=== PATIENT | female | born 1945 | race Caucasian/White ===

== ENCOUNTER 2016-10-07 18:01 | Emergency (ER) | payer MEDICARE, OTHER ==
[~2016-10-07] VITALS: Ht 157.5 cm; Wt 65.5 kg
[2016-10-07 19:04] LABS: BASOPHILS % (AUTO) 0 % (0-2); EOSINOPHILS # (AUTO) 0.1 10^3uL; EOSINOPHILS % (AUTO) 1 % (0-4); LYMPHOCYTES # (AUTO) 1.7 X10^3; MEAN CORPUSCULAR VOLUME 90 FL (80-100); MEAN PLATELET VOLUME 11.9 FL (6.0-9.5); MONOCYTES # (AUTO) 1.1 X10^3; MONOCYTES % (AUTO) 11 % (3-11); NEUTROPHILS # (AUTO) 7.3 X10^3; NEUTROPHILS % (AUTO) 71 % (51-67); PLATELET COUNT 136 10^3uL (150-450); WHITE BLOOD COUNT 10.24 10^3uL (4.0-11.0)
[2016-10-07 19:06] LABS: BILIRUBIN,URINE Negative (Negative); CLARITY,URINE Clear; COLOR,URINE Yellow; GLUCOSE, URINE (UA) Negative (Negative); LEUKOCYTE ESTERASE ,URINE 1+ (Negative); UROBILINOGEN,URINE 0.2 mg/dL (0.2-1.0)
[2016-10-07 19:14] LABS: MEAN CORPUSCULAR HEMOGLOBIN 32.1 PG (26.0-34.0); MEAN CORPUSCULAR HGB CONC 35.6 g/dL (31.0-37.0)
[2016-10-07 19:16] LABS: URINE CENTRIFUGED VOLUME 12 mL
[2016-10-07 19:18] LABS: ALBUMIN 4.7 g/dL (3.4-5.0); ALKALINE PHOSPHATASE 112 U/L (38-126); ANION GAP 16.1 MEQ/L (3-15); BUN/CREATININE RATIO 18 (10-20); CALCULATED IONIZED CALCIUM 3.9 mg/dL (3.8-4.6); CREATINE KINASE 58 U/L (30-135); TOTAL PROTEIN 7.7 g/dL (6.4-8.5)
[2016-10-07] MEDS ORDERED: LORazepam 2 MG/ML (ATIVAN) 1 ML VIAL IV ONE (20:20)
[2016-10-07] MEDS ORDERED: ED- SULFAMETHOXAZOLE/TRIMETHOPRIM 800-160 MG (SEPTRA DS) 6 TABLETS/BTL PO ONE (20:20)
[2016-10-07 20:45] VITALS: BP 179/105
== END 2016-10-07 20:46 | disposition home or self-care (01) ==
LOC: ED 18:05
DX: I10 Essential (primary) hypertension (principal); N39.0 Urinary tract infection, site not specified; F43.9 Reaction to severe stress, unspecified
CPT/HCPCS: 36415; 71010; 80053; 81003; 81015; 82550; 82553; 83605; 83880; 84443; 84484; 85025; 85379; 85610; 86140; 87088; 93005; 96361; 96374; 99284; A9270; J2060; J7030; 93010

== ENCOUNTER → 2016-10-10 | Outpatient (CLI) | payer MEDICARE, OTHER ==
[2016-10-10 14:50] LABS: BASOPHILS % (AUTO) 0 % (0-2); EOSINOPHILS # (AUTO) 0.1 10^3uL; EOSINOPHILS % (AUTO) 1 % (0-4); LYMPHOCYTES # (AUTO) 1.4 X10^3; MEAN CORPUSCULAR HGB CONC 35.3 g/dL (31.0-37.0); MEAN CORPUSCULAR VOLUME 89 FL (80-100); MEAN PLATELET VOLUME 12.4 FL (6.0-9.5); MONOCYTES # (AUTO) 0.9 X10^3; MONOCYTES % (AUTO) 9 % (3-11); NEUTROPHILS # (AUTO) 7.2 X10^3; NEUTROPHILS % (AUTO) 75 % (51-67); PLATELET COUNT 156 10^3uL (150-450)
[2016-10-10 14:52] LABS: BILIRUBIN,URINE Negative (Negative); CLARITY,URINE Clear; GLUCOSE, URINE (UA) Negative (Negative); LEUKOCYTE ESTERASE, URINE Negative (Negative); PH,URINE 5.5 (5.0 - 8.0); UROBILINOGEN,URINE 0.2 mg/dL (0.2-1.0)
[2016-10-10 14:56] LABS: COLOR,URINE Dark Yellow
[2016-10-10 14:58] LABS: URINE CENTRIFUGED VOLUME 12 mL
[2016-10-10 15:00] LABS: ALBUMIN 4.1 g/dL (3.4-5.0); ALKALINE PHOSPHATASE 105 U/L (38-126); ANION GAP 14.9 MEQ/L (3-15); BUN/CREATININE RATIO 13 (10-20); CALCULATED IONIZED CALCIUM 3.7 mg/dL (3.8-4.6); CREATINE KINASE 65 U/L (30-135); TOTAL PROTEIN 7.3 g/dL (6.4-8.5)
[2016-10-10 15:09] LABS: MEAN CORPUSCULAR HEMOGLOBIN 31.4 PG (26.0-34.0)
[2016-10-10 15:51] LABS: ERYTHROCYTE SEDIMENTATION RT* 18 mm/hr (0-23)
== END ==
LOC: LAB 14:08
PROVIDERS: ATTEND Family Medicine
DX: R07.2 Precordial pain (principal); R50.9 Fever, unspecified; R51 Headache
CPT/HCPCS: 36415; 71020; 80053; 81003; 81015; 82550; 84484; 85025; 85652; 86140; 87040; 87088

== ENCOUNTER → 2016-10-22 | Outpatient (CLI) | payer MEDICARE, OTHER ==
[2016-10-22 16:00] LABS: BASOPHILS % (AUTO) 1 % (0-2); EOSINOPHILS # (AUTO) 0.2 10^3uL; EOSINOPHILS % (AUTO) 2 % (0-4); LYMPHOCYTES # (AUTO) 2.6 X10^3; MEAN CORPUSCULAR HEMOGLOBIN 30.9 PG (26.0-34.0); MEAN CORPUSCULAR VOLUME 89 FL (80-100); MEAN PLATELET VOLUME 11.4 FL (6.0-9.5); MONOCYTES # (AUTO) 0.6 X10^3; MONOCYTES % (AUTO) 6 % (3-11); NEUTROPHILS # (AUTO) 5.9 X10^3; NEUTROPHILS % (AUTO) 63 % (51-67); PLATELET COUNT 228 10^3uL (150-450); WHITE BLOOD COUNT 9.32 10^3uL (4.0-11.0)
[2016-10-22 16:04] LABS: BILIRUBIN,URINE Negative (Negative); CLARITY,URINE Clear; COLOR,URINE Yellow; GLUCOSE, URINE (UA) Negative (Negative); LEUKOCYTE ESTERASE ,URINE Negative (Negative); UROBILINOGEN,URINE 0.2 mg/dL (0.2-1.0)
[2016-10-22 16:15] LABS: ALBUMIN 4.2 g/dL (3.4-5.0); ANION GAP 12.3 MEQ/L (3-15); MAGNESIUM* 2.2 mg/dL (1.6-2.3)
[2016-10-22 16:18] LABS: RBC,URINE 0-2 /HPF; URINE CENTRIFUGED VOLUME 12 mL
[2016-10-22 16:37] LABS: ERYTHROCYTE SEDIMENTATION RT* 5 mm/hr (0-23)
== END ==
LOC: LAB 15:38
PROVIDERS: ATTEND Family Medicine
DX: R05 Cough (principal); R53.83 Other fatigue; M62.89 Other specified disorders of muscle
CPT/HCPCS: 36415; 80053; 81003; 81015; 82550; 83735; 83874; 85025; 85652

== ENCOUNTER 2016-11-10 01:43 | Emergency (ER) | payer MEDICARE, OTHER ==
[~2016-11-10] VITALS: Ht 160 cm; Wt 62.0 kg
[2016-11-10] MEDS ORDERED: PANTOPRAZOLE IV 40 MG in SODIUM CHLORIDE FLUSH 10 ML IV ONE (02:05)
[2016-11-10 02:14] LABS: BASOPHILS % (AUTO) 0 % (0-2); EOSINOPHILS # (AUTO) 0.2 10^3uL; EOSINOPHILS % (AUTO) 3 % (0-4); LYMPHOCYTES # (AUTO) 2.2 X10^3; MEAN CORPUSCULAR HEMOGLOBIN 31.2 PG (26.0-34.0); MEAN CORPUSCULAR HGB CONC 34.4 g/dL (31.0-37.0); MEAN CORPUSCULAR VOLUME 91 FL (80-100); MEAN PLATELET VOLUME 11.7 FL (6.0-9.5); MONOCYTES # (AUTO) 0.7 X10^3; MONOCYTES % (AUTO) 8 % (3-11); NEUTROPHILS % (AUTO) 61 % (51-67); PLATELET COUNT 178 10^3uL (150-450); WHITE BLOOD COUNT 8.11 10^3uL (4.0-11.0)
[2016-11-10 02:25] LABS: ANION GAP 10.3 MEQ/L (3-15)
[2016-11-10 02:26] LABS: ALBUMIN 3.1 g/dL (3.4-5.0); CALCULATED IONIZED CALCIUM 4.5 mg/dL (3.8-4.6); TOTAL PROTEIN 5.2 g/dL (6.4-8.5)
[2016-11-10 02:31] LABS: CREATINE KINASE 34 U/L (30-135)
--- NOTE | 2016-11-10 02:39 | NUR ---
SPOKE TO PT ABOUT TRANSFER- PT WOULD LIKE TO GO [place]
--- NOTE | 2016-11-10 02:40 | NUR ---
RN CLEARED BLOOD OFF OF PATIENT AND REAPPLIED WARM BLANKETS FOR COMFORT. PT'S DAUGHTERS ARE AT BEDSIDE.
[2016-11-10 03:44] VITALS: BP 126/75
== END 2016-11-10 03:46 | disposition short-term general hospital (02) ==
LOC: EDUNIT# 01:43 → ED 01:45
DX: K92.2 Gastrointestinal hemorrhage, unspecified (principal); K92.1 Melena; D64.9 Anemia, unspecified
CPT/HCPCS: 36415; 80053; 82550; 82553; 84484; 85025; 85610; 85730; 86850; 86900; 86901; 96361; 96374; 99284; C9113; J7030; 99283

== ENCOUNTER → 2016-11-10 | Outpatient (CLI) | payer MEDICARE, OTHER | LOC: EMS 01:40 | PROVIDERS: ATTEND Family Medicine | DX: K92.2 Gastrointestinal hemorrhage, unspecified (principal); R53.1 Weakness ==

== ENCOUNTER → 2016-11-21 | Outpatient (CLI) | payer MEDICARE, OTHER ==
[~2016-11-21] MED LIST: ASPI-860 PO; ATOR40TA2 PO; IMMUNO PO; LEVO88TA2 PO; LEVO88TA4 PO; LOSA100T8 PO; LSRT50T PO; METO-272 PO; MULT-955 PO; TICA90TA PO; VIT D 3 PO; [UNRECOGNIZED DRUG - OTHER] PO; [UNRECOGNIZED DRUG - OTHER] PO; [UNRECOGNIZED DRUG - OTHER] PO; [UNRECOGNIZED DRUG - OTHER] PO; [UNRECOGNIZED DRUG - OTHER] PO
[2016-11-21 10:44] LABS: BASOPHILS % (AUTO) 1 % (0-2); EOSINOPHILS # (AUTO) 0.3 10^3uL; EOSINOPHILS % (AUTO) 4 % (0-4); LYMPHOCYTES # (AUTO) 1.5 X10^3; MEAN CORPUSCULAR HEMOGLOBIN 30.6 PG (26.0-34.0); MEAN CORPUSCULAR HGB CONC 33.6 g/dL (31.0-37.0); MEAN CORPUSCULAR VOLUME 91 FL (80-100); MEAN PLATELET VOLUME 12.2 FL (6.0-9.5); MONOCYTES # (AUTO) 0.6 X10^3; MONOCYTES % (AUTO) 9 % (3-11); NEUTROPHILS # (AUTO) 4.1 X10^3; NEUTROPHILS % (AUTO) 63 % (51-67); PLATELET COUNT 250 10^3uL (150-450); WHITE BLOOD COUNT 6.45 10^3uL (4.0-11.0)
== END ==
LOC: LAB 09:49
PROVIDERS: ATTEND Family Medicine
DX: D50.8 Other iron deficiency anemias (principal)
CPT/HCPCS: 36415; 85025

== ENCOUNTER 2016-12-19 09:30 | Outpatient (RCR) | payer MEDICARE, OTHER | END 2017-01-08 09:00 | disposition home or self-care (01) | LOC: CR 09:30 | PROVIDERS: ATTEND Family Medicine | DX: I25.119 Atherosclerotic heart disease of native coronary artery with unspecified angina pectoris (principal); Z95.5 Presence of coronary angioplasty implant and graft | CPT/HCPCS: 93798 ==